=== PATIENT | female | born 1995 | race Asian ===

== ENCOUNTER 2017-07-01 17:49 | Emergency (ER) | payer OTHER ==
--- NOTE | 2017-07-01 18:23 | EMERGENCY ROOM VISIT NOTE ---
History First contact with patient: 17:58 Chief Complaint: RABIES VACCINE Stated Complaint: RABIES VACCINE History of Present Illness The patient is a 22 year old female who presents to the Emergency Room with complaints of possibly needing a rabies vaccine. The patient states that she has a 4-month-old puppy. She has owned the dog for 1 month. She states that the dog is very playful, and sometimes scratches and bites her. Most recently, she sustained a small bites to her left wrist several days ago. She is concerned because the dog has not yet had his rabies vaccines. She states that the dog is not in contact with other animals. There has been no strange behavior. The patient also states that she gets a rash all over her body if she does not take Zyrtec every day. She is concerned that maybe she should have allergy testing. Review of Systems A complete 10 point review of systems was reviewed with the patient with pertinent positives and negatives as per history of present illness. All else were negative. Past Medical/Surgical History Medical Problems: (1) No significant past medical history Surgical Problems: (1) No significant past surgical history Social History Smoking Status: Never Smoker Alcohol Use: occasionally Housing Status: lives alone Occupation Status: [employer] student Physical Exam Vital Signs Date Time Temp Pulse Resp B/P (MAP) Pulse Ox O2 Delivery O2 Flow Rate FiO2 07/01/17 17:54 36.8 87 16 122/61 98 Physical Exam VITALS: Vitals are noted on the nurse's note and reviewed by myself. Vital signs stable. GENERAL: This is a 22-year-old female, in no acute distress, nondiaphoretic, well-developed well-nourished. SKIN: There are a few very small superficial scabbed abrasions to the left wrist , right forearm, and right knee. Otherwise no rashes. NEURO: Patient was alert and oriented to person place and time. Medical Decision & Procedures Medical Decision The patient was evaluated as above. She has several small, old superficial scratches and bites to the skin. I do not feel she will require antibiotic treatment. Her dog is not up-to-date on his rabies vaccines, but has not exhibited any aggressive behavior and has had no possible exposures to rabies. The patient additionally reports an itchy rash when she does not take Zyrtec. I did advise her to try using an unscented laundry detergent. She may follow up with an math instructor as desired. She verbalized understanding of my assessment and treatment plan and was discharged home in good condition. Medication Reconcilliation Current Medication List: was personally reviewed by me Blood Pressure Screening Patient's blood pressure: Normal blood pressure Impression Primary Impression: Dog bite Departure Information Dispostion Home / Self-Care Condition GOOD Referrals [facility] (PCP) Patient Instructions My [facility] Additional Instructions Make sure that your dog get his rabies vaccines. For pain control, you can use the following [id number] medicines (if >12 yo): - Regular strength (325mg/tab) Tylenol (acetaminophen) 2 tabs every 4-6 hours as needed. Do not exceed 12 tablets in a 24 hour period. Avoid taking more than 4 grams (4000 mg) of Tylenol per day. This includes any other sources of acetaminophen you may take on a regular basis. - Regular strength (200 mg/tab) Advil (ibuprofen) 1-2 tabs every 4-6 hours as needed. Do not exceed a dose of 3200 mg per day. Apply antibiotic ointment to the cut. You should try switching to a laundry detergent for sensitive skin and see if this helps your rash. If it persists, you can call an math instructor to schedule allergy testing. Problem Qualifiers Primary Impression: Dog bite Encounter type: initial encounter Qualified Codes: W54.0XXA - Bitten by dog , initial encounter
[2017-07-01 18:41] VITALS: BP 122/61; PULSE 87; TEMP 36.8; O2SAT 98
== END 2017-07-01 18:35 | disposition home or self-care (01) ==
LOC: C.EDB 17:50 → C.EDD 18:35
DX: T14.8XXA Other injury of unspecified body region, initial encounter (principal); W54.0XXA Bitten by dog, initial encounter; Y92.9 Unspecified place or not applicable

== ENCOUNTER 2017-10-02 13:29 | Emergency (ER) | payer OTHER ==
[~2017-10-02] VITALS: Ht 165.1 cm; Wt 48.0 kg
[2017-10-02 13:38] VITALS: TEMP 36.8; Ht 165.1 cm; Wt 48.0 kg
--- NOTE | 2017-10-02 14:32 | DIAGNOSTIC IMAGING REPORT ---
L ANKLE MIN 3 VIEWS ROUTINE CLINICAL HISTORY: L ankle wound - injury 3 wks ago LEFT ANKLE PAIN COMPARISON: None. DISCUSSION: No fractures or dislocations are visualized. There is mild medial soft tissue swelling. IMPRESSION: Mild medial soft tissue swelling. No acute or healing fractures identified. Electronically signed by: Jamar Adams M.D. 10/02/2017 2:31 PM Dictated Date/Time: 10/02/2017 2:30 PM
[2017-10-02] MEDS ORDERED: CEPH500C PO (15:09)
--- NOTE | 2017-10-02 15:14 | EMERGENCY ROOM VISIT NOTE ---
History First contact with patient: 13:42 Chief Complaint: FOOT PAIN Stated Complaint: LFT FOOT ANKLE History of Present Illness The patient is a 22 year old female who presents to the Emergency Room with complaints of left ankle pain and redness. The patient reports that she injured her ankle 3 weeks ago jumping on the table. She reports scraping the inside of both ankles. She did not notice any worsening pain and redness to the left inner ankle until 2 days ago. The patient reports that there has been a scab over the wound since the injury. She denies any red streaks, fevers or chills, and rates her discomfort a 4 out of 10 with weightbearing. Tetanus immunization is up-to-date. The patient denies any prior history of antibiotic resistant infections. Review of Systems 10 system review was performed and was negative except for pertinent positives and negatives as indicated in history of present illness Past Medical/Surgical History Medical Problems: (1) No significant past medical history Surgical Problems: (1) No significant past surgical history Family History No significant family history Social History Smoking Status: Never Smoker Alcohol Use: occasionally Marital Status: single Housing Status: lives alone Occupation Status: [employer] student Current/Historical Medications Scheduled Cephalexin Monohydrate (Keflex), 500 MG PO QID Physical Exam Vital Signs Date Time Temp Pulse Resp B/P (MAP) Pulse Ox O2 Delivery O2 Flow Rate FiO2 10/02/17 13:38 36.8 70 16 93/65 98 Room Air Physical Exam CONSTITUTIONAL: Healthy and well nourished. Alert and oriented X 3 with positive affect. Patient does not appear in any acute distress. HEENT: Normocephalic, atraumatic. Pupils equal, round and reactive. NECK: Full active range of motion without discomfort. MUSCULOSKELETAL: Examination of the left inner ankle shows a scab with surrounding erythema that is approximately 3 cm in diameter. No underlying fluctuance or drainage noted. The patient has no tenderness to palpation through the calcaneus, Achilles tendon or lateral ankle region. Negative anterior draw. Pedal pulses are intact. LYMPHATICS: No proximal lymphangitic streaking of the left lower extremity. INTEGUMENTARY: No rash or other significant dermatologic conditions noted. NEUROLOGIC: Left foot and toes are sensory intact. Medical Decision & Procedures ER Provider Diagnostic Interpretation: My interpretation of left ankle x-rays does not show any acute fractures, dislocation or radiopaque foreign body. Radiologist report is as follows: L ANKLE MIN 3 VIEWS ROUTINE CLINICAL HISTORY: L ankle wound - injury 3 wks ago LEFT ANKLE PAIN COMPARISON: None. DISCUSSION: No fractures or dislocations are visualized. There is mild medial soft tissue swelling. IMPRESSION: Mild medial soft tissue swelling. No acute or healing fractures identified. ED Course Patient history and physical exam were performed. Nurse's notes were reviewed. Vital signs were reviewed and were normal. The patient refused any analgesics. X-rays of the left ankle were normal. Bacitracin dressing was applied. The patient will be provided a prescription for Keflex antibiotics. The patient was advised that the redness should start to fade away within the next 48 hours. She was instructed to return to the emergency department for any progressively worsening infection. Ibuprofen or Tylenol as needed for additional pain relief. The patient was happy with plan of care, voiced understanding of all discharge instructions, and rated her discomfort a 2 out of 10 at the conclusion of my exam. Medical Decision Medication Reconcilliation Current Medication List: was personally reviewed by me Blood Pressure Screening Patient's blood pressure: Normal blood pressure Impression Primary Impression: Cellulitis of left ankle Departure Information Prescriptions Cephalexin Monohydrate (Keflex) 500 Mg Cap 500 MG PO QID for 7 Days, #28 CAP Prov: Jacky Zavaleta PA 10/02/17 Referrals No Doctor, Assigned (PCP) Patient Instructions My [facility]
[2017-10-02] MEDS ORDERED: BACITRACIN OINT 15 GM TUBE EXT ONE (15:15)
[2017-10-02 15:24] VITALS: BP 132/76; PULSE 72; O2SAT 99
== END 2017-10-02 15:25 | disposition home or self-care (01) ==
LOC: C.EDB 13:30 → C.EDD 15:25
DX: L03.116 Cellulitis of left lower limb (principal)